=== PATIENT | male | born 1975 | race Caucasian/White ===

== ENCOUNTER 2021-02-07 15:39 | Inpatient (IN) | payer OTHER ==
[~2021-02-07] VITALS: Ht 170.2 cm; Wt 95.4 kg
[2021-02-07 16:41] LABS: HEMOGLOBIN 14.2 gm/dl (14.0-17.5); RED BLOOD COUNT 4.69 M/UL (4.20-5.50); WHITE BLOOD COUNT 7.1 K/UL (4.5-11.0)
[2021-02-07] MEDS ORDERED: CLONAZEPAM1 MG PO (22:42)
[2021-02-07] MEDS ORDERED: GABAPENTIN600 MG PO (22:42)
[2021-02-07] MEDS ORDERED: ATORVASTATIN CA20 MG PO (22:43)
[2021-02-07] MEDS ORDERED: AMLODIPINE BESYL5 MG PO (22:43)
[2021-02-07] MEDS ORDERED: LOPRESSOR 25 MG25 MG PO (22:44)
[2021-02-07] MEDS ORDERED: HYDROCODON-ACE1 EAC6 PO (22:44)
[2021-02-07] MEDS ORDERED: HYDROCHLOROTH12.5 MG PO (22:44)
[2021-02-07] MEDS ORDERED: OMEPRAZOLE40 MG PO (22:45)
[2021-02-07] MEDS ORDERED: ASPIRIN EC81 MG PO (22:46)
[2021-02-08 03:32] LABS: HEMOGLOBIN 12.9 gm/dl (14.0-17.5); RED BLOOD COUNT 4.26 M/UL (4.20-5.50)
[2021-02-08 03:36] LABS: WHITE BLOOD COUNT 5.3 K/UL (4.5-11.0)
[2021-02-08 04:26] LABS: BUN/CREATININE RATIO 18 (0-10)
[2021-02-09 03:22] LABS: HEMOGLOBIN 12.8 gm/dl (14.0-17.5); RED BLOOD COUNT 4.28 M/UL (4.20-5.50)
[2021-02-09 03:28] LABS: WHITE BLOOD COUNT 8.9 K/UL (4.5-11.0)
[2021-02-09 03:56] LABS: BUN/CREATININE RATIO 22 (0-10)
[2021-02-10 03:11] LABS: HEMOGLOBIN 13.3 gm/dl (14.0-17.5); RED BLOOD COUNT 4.41 M/UL (4.20-5.50)
[2021-02-10 03:32] LABS: BUN/CREATININE RATIO 24 (0-10)
[2021-02-10 03:43] LABS: WHITE BLOOD COUNT 15.1 K/UL (4.5-11.0)
[2021-02-11 04:41] LABS: HEMOGLOBIN 13.6 gm/dl (14.0-17.5); RED BLOOD COUNT 4.49 M/UL (4.20-5.50); WHITE BLOOD COUNT 18.7 K/UL (4.5-11.0)
[2021-02-11 04:50] LABS: BUN/CREATININE RATIO 26 (0-10)
[2021-02-12 05:56] LABS: BUN/CREATININE RATIO 28 (0-10)
[2021-02-12 12:14] LABS: HBSAG SCREEN Negative (Negative); HEP A AB, IGM Negative (Negative); HEP B CORE AB, IGM Negative (Negative); HEP C VIRUS AB <0.1 (0.0-0.9)
[2021-02-13 03:05] LABS: HEMOGLOBIN 14.1 gm/dl (14.0-17.5); RED BLOOD COUNT 4.63 M/UL (4.20-5.50); WHITE BLOOD COUNT 20.5 K/UL (4.5-11.0)
[2021-02-13 03:39] LABS: BUN/CREATININE RATIO 31 (0-10)
[2021-02-14 03:37] LABS: HEMOGLOBIN 13.6 gm/dl (14.0-17.5); RED BLOOD COUNT 4.67 M/UL (4.20-5.50); WHITE BLOOD COUNT 19.3 K/UL (4.5-11.0)
[2021-02-14 03:59] LABS: BUN/CREATININE RATIO 26 (0-10)
--- NOTE | 2021-02-14 11:42 | NUR ---
OXYGEN SATURATION IS 82% ON ROOM AIR.
[2021-02-14] MEDS ORDERED: COMBIVENT RESPIM4 GM INH (12:31)
[2021-02-14] MEDS ORDERED: DECADRON6 MG PO (12:31)
--- NOTE | 2021-02-14 14:03 | NUR ---
PATIENTS OXYGEN SATURATION ON 4L NC IS 88%.
== END 2021-02-14 12:35 | disposition home or self-care (01) | DRG 177 ==
LOC: ER1 15:39 → PROG CARE 17:03 → CDU 17:03 → PROG CARE 21:05
PROVIDERS: Internal Medicine Infectious Disease; Internal Medicine Nephrology; Preventive Medicine Occupational Medicine; ADMIT Internal Medicine
PROC: 8E0ZXY6 Isolation (ICD-10-PCS; principal; 2021-02-07)
PROC: XW033E5 Introduction of Remdesivir Anti-infective into Peripheral Vein, Percutaneous Approach, New Technology Group 5 (ICD-10-PCS; 2021-02-07)
PROC: XW033H5 Introduction of Tocilizumab into Peripheral Vein, Percutaneous Approach, New Technology Group 5 (ICD-10-PCS; 2021-02-07)
PROC: 3E0333Z Introduction of Anti-inflammatory into Peripheral Vein, Percutaneous Approach (ICD-10-PCS; 2021-02-07)
PROC: 5A0955A Assistance with Respiratory Ventilation, Greater than 96 Consecutive Hours, High Flow/Velocity Cannula (ICD-10-PCS; 2021-02-07)
PROC: 5A09457 Assistance with Respiratory Ventilation, 24-96 Consecutive Hours, Continuous Positive Airway Pressure (ICD-10-PCS; 2021-02-11)
DX: U07.1 COVID-19 (principal); J12.82 Pneumonia due to coronavirus disease 2019; J96.01 Acute respiratory failure with hypoxia; M62.82 Rhabdomyolysis; F11.20 Opioid dependence, uncomplicated; R73.9 Hyperglycemia, unspecified; T50.995A Adverse effect of other drugs, medicaments and biological substances, initial encounter; E66.01 Morbid (severe) obesity due to excess calories; I12.9 Hypertensive chronic kidney disease with stage 1 through stage 4 chronic kidney disease, or unspecified chronic kidney disease; N28.9 Disorder of kidney and ureter, unspecified; K64.4 Residual hemorrhoidal skin tags; F41.9 Anxiety disorder, unspecified; G89.4 Chronic pain syndrome; Z79.01 Long term (current) use of anticoagulants; Z79.82 Long term (current) use of aspirin; Z68.33 Body mass index [BMI] 33.0-33.9, adult
CPT/HCPCS: 36415; 36600; 71045; 80048; 80053; 80074; 80202; 82550; 82553; 82728; 82803; 83036; 83605; 83874; 84484; 85025; 85379; 85610; 85652; 85730; 86140; 87040; 87070; 87205; 93005; 94640; 94660; 94664; 94760; 97162; 97530-GP-CQ; 99285; J0696; J1100; J1650; J1940; J2185; J3370; J7030; J7070; Q0249